=== PATIENT | male | born 1985 | race Hispanic/Latino ===

== ENCOUNTER 2018-04-13 16:34 | Emergency (ER) | payer OTHER ==
[2018-04-13] MEDS ORDERED: NACL 0.9% 1000 ML 1,000 ML IV ONE ×2 (17:12→18:35)
[2018-04-13] MEDS ORDERED: MORPHINE IV ONE (17:24)
[2018-04-13] MEDS ORDERED: ZOFRAN IV ONE (17:24)
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
[2018-04-13 17:38] LABS: Hematocrit 36.9 % (35.5-45.6); Hemoglobin 12.7 gm/dl (11.8-15.2); Lymphocytes % (Auto) 33.6 % (13.4-35.0); Mean Corpuscular HGB Conc 35 % (32-34); Mean Corpuscular Hemoglobin 33 pg (28-32); Mean Corpuscular Volume 96 fl (84-94); Monocytes % (Auto) 6.6 % (0.0-7.3); Platelet Count 308 K/mm3 (140-440); Red Blood Count 3.86 M/mm3 (3.65-5.03); Red Cell Distribution Width 14.9 % (13.2-15.2)
[2018-04-13 17:39] LABS: Basophils # (Auto) 0.2 K/mm3 (0.0-0.1); Basophils % (Auto) 1.2 % (0.0-1.8); Eosinophils # (Auto) 0.7 K/mm3 (0.0-0.4); Eosinophils % (Auto) 5.6 % (0.0-4.3); Lymphocytes # (Auto) 4.3 K/mm3 (1.2-5.4); Monocytes # (Auto) 0.9 K/mm3 (0.0-0.8)
[2018-04-13 17:48] LABS: INR 0.92 (0.87-1.13)
[2018-04-13 18:03] LABS: Alanine Aminotransferase 37 units/L (7-56); Albumin 4.2 g/dL (3.9-5); BUN/Creatinine Ratio 18; Blood Urea Nitrogen 16 mg/dL (9-20); Calcium 9.1 mg/dL (8.4-10.2); Hemolysis Index 2
[2018-04-13] MEDS ORDERED: SUBLIMAZE IV ONE (18:35)
--- NOTE | 2018-04-13 19:35 | Cat Scan Report ---
FINAL REPORT PROCEDURE: CT CHEST WO CON TECHNIQUE: Computerized axial tomography of the chest was performed without contrast material. This study is performed without intravenous contrast and the sensitivity for pathology, including neoplasms, adenopathy, abscess, pulmonary embolism and aortic dissection, is reduced. HISTORY: CHEST INJURY COMPARISON: No prior studies are available for comparison. TECHNICAL QUALITY: Satisfactory. FINDINGS: Pericardium: No evidence of pericardial effusion. Thoracic aorta: No evidence of aneurysmal dilatation. Coronary arteries: Are unremarkable. Mediastinum and hilar regions: Nonspecific subcentimeter lymph nodes are visualized. No pathologically enlarged lymph nodes or masses are identified. Subtle soft tissue density seen in the anterior mediastinum conforming to the contours of the anterior mediastinum suggesting residual thymic tissue. No definite mediastinal hemorrhage is seen. Lung Floyd: No infiltrates masses effusions or pneumothorax are visualized. Upper abdomen: Liver density appears mildly diffusely decreased suggesting fatty infiltration. No discrete liver lesions are seen. The upper abdomen is otherwise unremarkable. Other: Pacemaker seen implanted in the left side of the chest anteriorly. Cardiac leads visualized in the right side of the heart. No definite acute bony abnormalities are seen. On the sagittal reconstructions there irregularity of the manubrium. I suspect this is related to motion artifact as opposed to a true injury. Correlation with physical exam is recommended. This is seen on sagittal reconstruction image 115 series 602. . IMPRESSION: Mild cortical irregularity of the manubrium which I suspect is an artifact. Please see above comments. Correlation with physical exam is recommended. Pacemaker in place as described.. No other abnormalities are identified.
[2018-04-13 19:44] VITALS: BP 112/61
== END 2018-04-13 20:23 | disposition home or self-care (01) ==
LOC: ED 16:34
DX: S20.219A Contusion of unspecified front wall of thorax, initial encounter (principal); Z86.711 Personal history of pulmonary embolism; I25.2 Old myocardial infarction; I50.9 Heart failure, unspecified; F17.200 Nicotine dependence, unspecified, uncomplicated; F12.10 Cannabis abuse, uncomplicated; X58.XXXA Exposure to other specified factors, initial encounter; Y93.89 Activity, other specified; Y92.89 Other specified places as the place of occurrence of the external cause; Y99.8 Other external cause status
CPT/HCPCS: 36415; 71250; 80053; 83880; 84484; 85025; 85379; 85610; 85730; 93005; 93010; 96374; 96375; 99285; J2270; J2405; J3010; J7030

== ENCOUNTER 2018-09-05 01:58 | Emergency (ER) | payer MEDICAID, OTHER ==
[2018-09-05 02:17] VITALS: BP 123/72
[2018-09-05 03:02] LABS: Basophils % (Auto) 0.3 % (0.0-1.8); Eosinophils # (Auto) 0.6 K/mm3 (0.0-0.4); Hematocrit 36.9 % (35.5-45.6); Hemoglobin 12.5 gm/dl (11.8-15.2); Lymphocytes # (Auto) 3.1 K/mm3 (1.2-5.4); Lymphocytes % (Auto) 26.4 % (13.4-35.0); Mean Corpuscular HGB Conc 34 % (32-34); Mean Corpuscular Volume 97 fl (84-94); Monocytes # (Auto) 0.9 K/mm3 (0.0-0.8); Monocytes % (Auto) 7.5 % (0.0-7.3); Platelet Count 238 K/mm3 (140-440); Red Cell Distribution Width 15.9 % (13.2-15.2)
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
--- NOTE | 2018-09-05 03:14 | XRay Report ---
PROCEDURE: XR CHEST 1V AP TECHNIQUE: A portable upright view of the chest was submitted. HISTORY: Chest Pain COMPARISONS: None FINDINGS: The heart size and mediastinum appear normal. The lungs are clear. There is no evidence of congestion or effusion. There is a pacemaker overlying the left chest wall with the leads in the right atrium a nd right ventricle. The skeletal structures do not show any acute changes. IMPRESSION: No acute cardiopulmonary process.. This document is electronically signed by Maldonado Argueta MD., September 05 2018 03:11:04 AM ET
[2018-09-05 03:21] LABS: Alanine Aminotransferase 63 units/L (7-56); BUN/Creatinine Ratio 18; Blood Urea Nitrogen 16 mg/dL (9-20); Calcium 9.3 mg/dL (8.4-10.2); Hemolysis Index 12
== END 2018-09-05 03:23 | disposition home or self-care (01) ==
LOC: ED 01:58
DX: S20.219A Contusion of unspecified front wall of thorax, initial encounter (principal); I11.0 Hypertensive heart disease with heart failure; I50.9 Heart failure, unspecified; F17.200 Nicotine dependence, unspecified, uncomplicated; I25.2 Old myocardial infarction; Z95.818 Presence of other cardiac implants and grafts; Z86.711 Personal history of pulmonary embolism; Z79.899 Other long term (current) drug therapy; Z91.010 Allergy to peanuts; Z88.8 Allergy status to other drugs, medicaments and biological substances; Z91.041 Radiographic dye allergy status; W18.30XA Fall on same level, unspecified, initial encounter; Y93.89 Activity, other specified; Y92.89 Other specified places as the place of occurrence of the external cause; Y99.8 Other external cause status
CPT/HCPCS: 36415; 71045; 80048; 80053; 84484; 85025; 93005; 93010